=== PATIENT | female | born 1955 | race Two or more races ===

== ENCOUNTER 2017-11-06 13:56 | Outpatient (CLI) | payer OTHER | END 2017-11-06 14:02 | disposition home or self-care (01) | LOC: SONOGRAMA 13:56 | DX: N30.00 Acute cystitis without hematuria (principal) ==

== ENCOUNTER 2017-11-14 12:36 | Outpatient (CLI) | payer OTHER | END 2017-11-14 12:41 | disposition home or self-care (01) | LOC: MAMO-SONO 12:36 | DX: Z12.31 Encounter for screening mammogram for malignant neoplasm of breast (principal); Z87.898 Personal history of other specified conditions; N62 Hypertrophy of breast ==

== ENCOUNTER 2018-03-21 13:53 | Outpatient (CLI) | payer OTHER | END 2018-03-21 15:43 | disposition home or self-care (01) | LOC: MRI 13:53 | DX: M51.36 Other intervertebral disc degeneration, lumbar region (principal); M43.10 Spondylolisthesis, site unspecified | CPT/HCPCS: 72148 ==

== ENCOUNTER 2018-03-29 10:09 | Outpatient (CLI) | payer OTHER | END 2018-03-29 10:11 | disposition home or self-care (01) | LOC: SONOGRAMA 10:09 | DX: E04.8 Other specified nontoxic goiter (principal) ==

== ENCOUNTER 2018-04-09 11:29 | Outpatient (CLI) | payer OTHER | END 2018-04-09 13:34 | disposition home or self-care (01) | LOC: NUCLEAR 11:29 | DX: M81.0 Age-related osteoporosis without current pathological fracture (principal) ==

== ENCOUNTER 2018-05-07 12:14 | Outpatient (CLI) | payer OTHER | END 2018-05-07 12:18 | disposition home or self-care (01) | LOC: RAD 12:14 | DX: R07.1 Chest pain on breathing (principal) ==

== ENCOUNTER 2018-05-29 16:26 | Inpatient (IN) | payer OTHER ==
[~2018-05-29] VITALS: Ht 154.9 cm; Wt 83.9 kg
[2018-06-03] MEDS ORDERED: LOVAZA1 GM PO (13:01)
[2018-06-03] MEDS ORDERED: SYNTHROID112 MCG PO (13:01)
[2018-06-03] MEDS ORDERED: CRESTOR40 MG PO (13:02)
[2018-06-11] MEDS ORDERED: GABAPENTIN800 MG PO (09:16)
[2018-06-11] MEDS ORDERED: DOCUSATE SODIU100 MG PO (09:16)
[2018-06-11] MEDS ORDERED: CIPROFLOXACIN750 MG PO ×2 (09:17→09:21)
[2018-06-11] MEDS ORDERED: PERCOCET 5-3251 EACH PO (09:19)
[2018-06-11] MEDS ORDERED: CLONAZEPAM1 MG PO (09:19)
== END 2018-06-11 13:06 | disposition home or self-care (01) | DRG 460 ==
LOC: SURG 06-10 05:00 → O/R 06-10 05:00 → SURG 06-10 10:00
PROVIDERS: Orthopaedic Surgery Orthopaedic Surgery of the Spine
PROC: 00NY0ZZ Release Lumbar Spinal Cord, Open Approach (ICD-10-PCS; 2018-06-10)
PROC: 0ST40ZZ Resection of Lumbosacral Disc, Open Approach (ICD-10-PCS; 2018-06-10)
PROC: 07DS3ZZ Extraction of Vertebral Bone Marrow, Percutaneous Approach (ICD-10-PCS; 2018-06-10)
PROC: 0SG30AJ Fusion of Lumbosacral Joint with Interbody Fusion Device, Posterior Approach, Anterior Column, Open Approach (ICD-10-PCS; principal; 2018-06-10 17:30)
DX: M47.27 Other spondylosis with radiculopathy, lumbosacral region (principal); M43.17 Spondylolisthesis, lumbosacral region; M51.17 Intervertebral disc disorders with radiculopathy, lumbosacral region; E03.8 Other specified hypothyroidism

== ENCOUNTER 2018-07-23 15:40 | Outpatient (CLI) | payer OTHER ==
[~2018-07-23 15:40] MED LIST: CIPROFLOXACIN750 MG PO; CLONAZEPAM1 MG PO; CRESTOR40 MG PO; DOCUSATE SODIU100 MG PO; GABAPENTIN800 MG PO; LOVAZA1 GM PO; PERCOCET 5-3251 EACH PO; SYNTHROID112 MCG PO
== END 2018-07-23 15:48 | disposition home or self-care (01) ==
LOC: RAD 15:40
DX: M51.36 Other intervertebral disc degeneration, lumbar region (principal)

== ENCOUNTER 2018-08-15 13:15 | Outpatient (CLI) | payer OTHER | END 2018-08-15 13:18 | disposition home or self-care (01) | LOC: SONOGRAMA 13:15 | DX: N60.11 Diffuse cystic mastopathy of right breast (principal); N60.12 Diffuse cystic mastopathy of left breast ==

== ENCOUNTER 2018-09-03 08:05 | Inpatient (IN) | payer OTHER ==
[~2018-09-03] VITALS: Ht 152.4 cm; Wt 82.1 kg
[2018-09-06] MEDS ORDERED: DOCUSATE SODIU100 MG PO (10:21)
[2018-09-06] MEDS ORDERED: FLAGYL500MG PO (10:22)
[2018-09-06] MEDS ORDERED: HYOSCYAMINE0.125 M1 SL (10:25)
[2018-09-06] MEDS ORDERED: CIPRO500 MG PO (10:28)
== END 2018-09-06 12:19 | disposition home or self-care (01) | DRG 392 ==
LOC: ER 08:05 → SEC-K 15:24 → MEDI 17:01
PROC: BW25Y0Z Computerized Tomography (CT Scan) of Chest, Abdomen and Pelvis using Other Contrast, Unenhanced and Enhanced (ICD-10-PCS; principal; 2018-09-03)
DX: K57.32 Diverticulitis of large intestine without perforation or abscess without bleeding (principal); E03.8 Other specified hypothyroidism

== ENCOUNTER 2018-12-02 11:37 | Emergency (ER) | payer OTHER ==
[~2018-12-02] VITALS: Ht 154.9 cm; Wt 81.6 kg
[~2018-12-02 11:37] MED LIST changes: +CIPRO500 MG PO; +FLAGYL500MG PO; +HYOSCYAMINE0.125 M1 SL
[2018-12-02] MEDS ORDERED: CLONAZEPAM0.5 M1 (12:12)
[2018-12-02] MEDS ORDERED: SYNTHROID175 MCG (12:13)
== END 2018-12-02 15:56 | disposition home or self-care (01) ==
LOC: ER 11:37
DX: S30.0XXA Contusion of lower back and pelvis, initial encounter (principal); W18.09XA Striking against other object with subsequent fall, initial encounter; Y93.89 Activity, other specified; Y92.018 Other place in single-family (private) house as the place of occurrence of the external cause; Y99.8 Other external cause status

== ENCOUNTER 2018-12-31 08:07 | Emergency (ER) | payer OTHER ==
[~2018-12-31] VITALS: Ht 154.9 cm; Wt 77.1 kg
[~2018-12-31 08:07] MED LIST changes: +CLONAZEPAM0.5 M1; +SYNTHROID175 MCG
[2018-12-31] MEDS ORDERED: LATUDA60 MG PO (08:29)
[2018-12-31] MEDS ORDERED: BUSPIRONE HCL15 MG PO (08:29)
[2018-12-31] MEDS ORDERED: FLUVOXAMINE MAL50 MG PO (08:30)
[2018-12-31] MEDS ORDERED: CIPRO500 MG PO ×2 (13:17→13:20)
[2018-12-31] MEDS ORDERED: FLAGYL500MG PO ×2 (13:17→13:20)
[2018-12-31] MEDS ORDERED: ULTRACET PO (13:17)
[2018-12-31] MEDS ORDERED: INTESTINEX680 M1 PO ×2 (13:17→13:20)
== END 2018-12-31 13:52 | disposition home or self-care (01) ==
LOC: ER 08:07
DX: K57.32 Diverticulitis of large intestine without perforation or abscess without bleeding (principal); R10.32 Left lower quadrant pain

== ENCOUNTER 2019-02-23 13:23 | Outpatient (CLI) | payer OTHER ==
[~2019-02-23 13:23] MED LIST changes: +BUSPIRONE HCL15 MG PO; +FLUVOXAMINE MAL50 MG PO; +INTESTINEX680 M1 PO; +LATUDA60 MG PO; +ULTRACET PO
== END 2019-02-23 14:53 | disposition home or self-care (01) ==
LOC: RAD 13:23
DX: M51.36 Other intervertebral disc degeneration, lumbar region (principal); Z98.1 Arthrodesis status

== ENCOUNTER → 2019-03-19 | Outpatient (CLI) | payer OTHER | END | disposition home or self-care (01) | LOC: SONOGRAMA 13:23 | DX: E04.2 Nontoxic multinodular goiter (principal); E06.3 Autoimmune thyroiditis; E78.2 Mixed hyperlipidemia; I11.9 Hypertensive heart disease without heart failure; E66.09 Other obesity due to excess calories; F33.8 Other recurrent depressive disorders; E55.9 Vitamin D deficiency, unspecified; E56.8 Deficiency of other vitamins; M85.80 Other specified disorders of bone density and structure, unspecified site ==

== ENCOUNTER 2019-04-14 13:53 | Outpatient (CLI) | payer OTHER | END 2019-04-14 14:13 | disposition home or self-care (01) | LOC: MAMO-SONO 13:53 | DX: Z12.31 Encounter for screening mammogram for malignant neoplasm of breast (principal); Z87.898 Personal history of other specified conditions; N60.11 Diffuse cystic mastopathy of right breast; N60.12 Diffuse cystic mastopathy of left breast ==

== ENCOUNTER 2019-05-29 10:14 | Emergency (ER) | payer OTHER ==
[~2019-05-29] VITALS: Ht 152.4 cm; Wt 72.6 kg
== END 2019-05-29 14:28 | disposition home or self-care (01) ==
LOC: ER 10:14
DX: N39.0 Urinary tract infection, site not specified (principal); B96.29 Other Escherichia coli [E. coli] as the cause of diseases classified elsewhere

== ENCOUNTER → 2019-06-15 | Emergency (ER) | payer OTHER ==
[~2019-06-15] VITALS: Ht 154.9 cm; Wt 82.1 kg
[~2019-06-15] MED LIST changes: +ZANTAC150 MG PO
== END | disposition home or self-care (01) ==
LOC: ER 07:38
DX: K57.32 Diverticulitis of large intestine without perforation or abscess without bleeding (principal); R10.31 Right lower quadrant pain; R10.32 Left lower quadrant pain

== ENCOUNTER 2019-08-01 12:15 | Emergency (ER) | payer OTHER ==
[~2019-08-01] VITALS: Ht 154.9 cm; Wt 68.9 kg
== END 2019-08-01 17:15 | disposition home or self-care (01) ==
LOC: ER 12:15
DX: N39.0 Urinary tract infection, site not specified (principal)

== ENCOUNTER 2019-08-07 06:36 | Day surgery (SDC) | payer OTHER | END 2019-08-07 12:30 | disposition home or self-care (01) | LOC: AMB-ENDOS 06:36 | DX: K57.32 Diverticulitis of large intestine without perforation or abscess without bleeding (principal); K64.1 Second degree hemorrhoids ==

== ENCOUNTER 2019-08-23 12:24 | Emergency (ER) | payer OTHER ==
[~2019-08-23] VITALS: Ht 154.9 cm; Wt 70.3 kg
== END 2019-08-23 16:43 | disposition home or self-care (01) ==
LOC: ER 12:24
DX: N39.0 Urinary tract infection, site not specified (principal)

== ENCOUNTER 2019-11-07 13:05 | Emergency (ER) | payer OTHER ==
[~2019-11-07] VITALS: Ht 149.9 cm; Wt 68.0 kg
== END 2019-11-07 17:54 | disposition home or self-care (01) ==
LOC: ER 13:05
DX: A50.1 Early congenital syphilis, latent (principal)

== ENCOUNTER 2020-01-24 11:29 | Emergency (ER) | payer OTHER ==
[~2020-01-24] VITALS: Ht 154.9 cm; Wt 70.3 kg
[2020-01-24] MEDS ORDERED: CLONOPIN (11:52)
== END 2020-01-24 13:58 | disposition home or self-care (01) ==
LOC: EMR PED 11:29 → ER 11:33 → EMR PED 11:33 → ER 13:58
DX: R51 Headache (principal); R53.81 Other malaise; F41.1 Generalized anxiety disorder

== ENCOUNTER 2020-02-27 10:24 | Emergency (ER) | payer OTHER ==
[~2020-02-27] VITALS: Ht 154.9 cm; Wt 72.6 kg
[~2020-02-27 10:24] MED LIST changes: +CLONOPIN
[2020-02-27] MEDS ORDERED: LAMICTAL5 MG PO (10:48)
[2020-02-27] MEDS ORDERED: LUVOX (10:49)
[2020-02-27] MEDS ORDERED: LAMOTRIGINE250 MG (10:49)
== END 2020-02-27 15:41 ==
LOC: ER 10:24
DX: N39.0 Urinary tract infection, site not specified (principal); Z03.818 Encounter for observation for suspected exposure to other biological agents ruled out; R53.1 Weakness; R51 Headache

== ENCOUNTER → 2020-03-18 | Emergency (ER) | payer OTHER ==
[~2020-03-18] VITALS: Ht 154.9 cm; Wt 72.6 kg
[~2020-03-18] MED LIST changes: +BUTALBIT-ACETA1 EACH PO; +CLONAZEPAM0.125 MG; +LAMICTAL5 MG PO; +LAMOTRIGINE250 MG; +LUVOX; +ONDANSETRON ODT4 MG SL
== END | disposition home or self-care (01) ==
LOC: ER 12:21
DX: R53.1 Weakness (principal); F06.4 Anxiety disorder due to known physiological condition

== ENCOUNTER 2020-04-07 08:23 | Emergency (ER) | payer OTHER ==
[~2020-04-07] VITALS: Ht 154.9 cm; Wt 71.7 kg
[~2020-04-07 08:23] MED LIST changes: -BUTALBIT-ACETA1 EACH PO; -ONDANSETRON ODT4 MG SL
[2020-04-07] MEDS ORDERED: ONDANSETRON ODT4 MG SL (12:16)
[2020-04-07] MEDS ORDERED: BUTALBIT-ACETA1 EACH PO (12:16)
== END 2020-04-07 12:27 | disposition home or self-care (01) ==
LOC: ER 08:23
DX: G43.919 Migraine, unspecified, intractable, without status migrainosus (principal)

== ENCOUNTER → 2020-05-11 | Emergency (ER) | payer OTHER ==
[~2020-05-11] VITALS: Ht 154.9 cm; Wt 68.5 kg
[~2020-05-11] MED LIST changes: +BUTALBIT-ACETA1 EACH PO; +CHLORDIAZEPOXIDE5 MG PO; +FLUVOXAMINE MA100 M1 PO; +LITHOBID300 M1 PO; +ONDANSETRON ODT4 MG SL; +SYNTHROID100 MCG PO; +TRAZODONE HCL50 MG PO
== END | disposition home or self-care (01) ==
LOC: ER 15:44
DX: K57.92 Diverticulitis of intestine, part unspecified, without perforation or abscess without bleeding (principal); R10.32 Left lower quadrant pain

== ENCOUNTER 2020-09-20 10:30 | Inpatient (IN) | payer OTHER ==
[~2020-09-20] VITALS: Ht 154.9 cm; Wt 68.0 kg
[2020-09-20] MEDS ORDERED: CRESTOR40 MG PO (13:29)
[2020-09-20] MEDS ORDERED: PROTONIX40 MG PO (13:29)
[2020-09-20] MEDS ORDERED: LUVOX PO (13:30)
[2020-09-28] MEDS ORDERED: FLUVOXAMINE MA100 M1 (09:01)
== END 2020-09-30 17:50 | disposition home or self-care (01) | DRG 330 ==
LOC: SURH 09-27 06:00 → O/R 09-27 06:00 → SURH 09-27 10:30
PROVIDERS: ADMIT Colon & Rectal Surgery; ATTEND Colon & Rectal Surgery
PROC: 0DJD8ZZ Inspection of Lower Intestinal Tract, Via Natural or Artificial Opening Endoscopic (ICD-10-PCS; 2020-09-27)
PROC: 0DBN4ZZ Excision of Sigmoid Colon, Percutaneous Endoscopic Approach (ICD-10-PCS; principal; 2020-09-27 14:15)
DX: K57.32 Diverticulitis of large intestine without perforation or abscess without bleeding (principal); N32.1 Vesicointestinal fistula; M43.17 Spondylolisthesis, lumbosacral region; E03.9 Hypothyroidism, unspecified

== ENCOUNTER → 2020-11-10 13:58 | Outpatient (CLI) | payer OTHER ==
[~2020-11-10 13:58] MED LIST changes: +FLUVOXAMINE MA100 M1; +LUVOX PO; +PROTONIX40 MG PO
== END | disposition home or self-care (01) ==
LOC: LAB 13:58
PROVIDERS: ATTEND Internal Medicine Cardiovascular Disease
DX: N39.0 Urinary tract infection, site not specified (principal); B96.29 Other Escherichia coli [E. coli] as the cause of diseases classified elsewhere

== ENCOUNTER 2021-08-08 10:43 | Emergency (ER) | payer OTHER ==
[~2021-08-08] VITALS: Ht 160 cm; Wt 63.5 kg
[2021-08-08] MEDS ORDERED: CLONAZEPAM1 MG PO (11:20)
== END 2021-08-08 12:40 | disposition home or self-care (01) ==
LOC: ER 10:43
DX: S01.02XA Laceration with foreign body of scalp, initial encounter (principal); W18.09XA Striking against other object with subsequent fall, initial encounter; Y93.89 Activity, other specified; Y92.018 Other place in single-family (private) house as the place of occurrence of the external cause; Y99.8 Other external cause status

== ENCOUNTER 2021-09-19 08:00 | Outpatient (CLI) | payer OTHER | END 2021-09-19 10:49 | disposition home or self-care (01) | LOC: PPH VACUNA 08:00 | PROVIDERS: ATTEND Emergency Medicine Pediatric Emergency Medicine | DX: Z23 Encounter for immunization (principal) ==

== ENCOUNTER 2021-09-29 08:30 | Day surgery (SDC) | payer OTHER | END 2021-09-29 14:40 | disposition home or self-care (01) | LOC: AMB-ENDOS 08:30 | PROVIDERS: ATTEND Colon & Rectal Surgery | DX: K57.32 Diverticulitis of large intestine without perforation or abscess without bleeding (principal); K64.0 First degree hemorrhoids ==

== ENCOUNTER 2022-07-19 13:09 | Emergency (ER) | payer OTHER ==
[~2022-07-19] VITALS: Ht 154.9 cm; Wt 65.8 kg
== END 2022-07-19 14:30 | disposition home or self-care (01) ==
LOC: ER 13:09
DX: H66.92 Otitis media, unspecified, left ear (principal); Z88.6 Allergy status to analgesic agent; Z88.0 Allergy status to penicillin; Z88.8 Allergy status to other drugs, medicaments and biological substances

== ENCOUNTER 2022-11-22 13:23 | Emergency (ER) | payer OTHER ==
[~2022-11-22] VITALS: Ht 152.4 cm; Wt 68.0 kg
== END 2022-11-22 18:21 | disposition home or self-care (01) ==
LOC: ER 13:23
DX: J40 Bronchitis, not specified as acute or chronic (principal); R05.9 Cough, unspecified; Z91.041 Radiographic dye allergy status; Z88.6 Allergy status to analgesic agent; Z88.0 Allergy status to penicillin

== ENCOUNTER 2024-01-15 11:04 | Outpatient (CLI) | payer OTHER | END 2024-01-15 11:11 | disposition home or self-care (01) | LOC: SONOGRAMA 11:04 | PROVIDERS: ATTEND Urology | DX: N31.8 Other neuromuscular dysfunction of bladder (principal) ==

== ENCOUNTER 2024-12-26 10:04 | Emergency (ER) | payer OTHER ==
[~2024-12-26] VITALS: Ht 154.9 cm; Wt 63.5 kg
[2024-12-26] MEDS ORDERED: CEFTRIAXONE SODIUM 1,000 MG VIAL IV STA (11:12)
== END 2024-12-26 11:29 | disposition home or self-care (01) ==
LOC: ER 10:07
DX: N39.0 Urinary tract infection, site not specified (principal); Z88.0 Allergy status to penicillin; Z88.6 Allergy status to analgesic agent; Z91.041 Radiographic dye allergy status
CPT/HCPCS: 96365; 99282; J0696

== ENCOUNTER 2025-05-19 12:55 | Outpatient (CLI) | payer OTHER | END 2025-05-19 13:00 | disposition home or self-care (01) | LOC: RAD 12:55 | PROVIDERS: ATTEND Internal Medicine Cardiovascular Disease | DX: M19.90 Unspecified osteoarthritis, unspecified site (principal) ==

== ENCOUNTER → 2025-05-27 10:23 | Outpatient (CLI) | payer OTHER | END | disposition home or self-care (01) | LOC: NUCLEAR 10:23 | PROVIDERS: ATTEND Internal Medicine Cardiovascular Disease | DX: I87.2 Venous insufficiency (chronic) (peripheral) (principal) ==